=== PATIENT | female | born 1940 | race Caucasian/White ===

== ENCOUNTER → 2018-06-21 | Outpatient (CLI) | payer OTHER, MEDICARE | LOC: CIMAGING 11:12 | PROVIDERS: ATTEND Family Medicine | DX: R91.1 Solitary pulmonary nodule (principal); J98.4 Other disorders of lung; K87 Disorders of gallbladder, biliary tract and pancreas in diseases classified elsewhere | CPT/HCPCS: 71250-PO ==

== ENCOUNTER → 2018-06-28 | Outpatient (CLI) | payer OTHER, MEDICARE | LOC: CIMAGING 07:57 | PROVIDERS: ATTEND Family Medicine | DX: K82.8 Other specified diseases of gallbladder (principal) | CPT/HCPCS: 76705-PO ==

== ENCOUNTER 2018-08-23 07:42 | Day surgery (SDC) | payer OTHER, MEDICARE ==
--- NOTE | 2018-08-21 10:25 | GHP ---
DATE OF ADMISSION: 08/23/2018 DATE OF SURGERY: 08/23/2018 CHIEF COMPLAINT: Abnormal gallbladder ultrasound. HISTORY OF PRESENT ILLNESS: 78-year-old woman originally evaluated on July 11, 2018. She had an ultrasound of her abdomen on 06/28/2018, which showed a nonmobile echogenic mass in her gallbladder w ith no obvious vascularity. The gallbladder is not completely distended and has external mural nodul arity without obvious invasion of the adjacent pericholecystic fat. There is no intra or extrahepati c biliary dilatation. No evidence of hepatic metastases. The pancreas looks normal. She has been f ollowed for this for a gallbladder abnormality for about 6 years. 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 She is asymptomatic. She does not have any discomfort after eatin g fatty foods. Does not have any itching of her skin. She denies any change in her health since her evaluation in the office. PAST MEDICAL HISTORY: Diverticulosis, hyperglycemia, hyperuricemia, lung nodule, renal cyst. PAST SURGICAL HISTORY: Eye surgery, tonsillectomy. ALLERGIES: Penicillin. FAMILY MEDICAL HISTORY: Cardiac arrest, CVA, hypertension, kidney disease. SOCIAL HISTORY: She reports occasional alcohol use. No recreational drug use. She is a current smo ker. She has 1 child. REVIEW OF SYSTEMS: 10-point review of systems negative, aside from HPI. PHYSICAL EXAM: GENERAL: Well-developed, well-nourished woman in no acute distress. HEENT: Normoce phalic, atraumatic. No hearing deficit. Pupils equal, round. No scleral icterus. Mucous membrane s moist. NECK: Trachea midline. RESPIRATORY: Clear to auscultation bilaterally. No increased work of breathing. CARDIOVASCULAR: Regular rate and rhythm. No peripheral edema. ABDOMEN: Soft, nond istended, nontender. No palpable masses. PSYCH: Mood and affect normal. NEURO: Grossly intact. IMPRESSION/PLAN: 78-year-old woman with an abnormal gallbladder ultrasound and cannot rule out carci noma. We discussed laparoscopic cholecystectomy to obtain definitive diagnosis. We discussed risks of surgery, including, but not limited to heart attack, stroke, blood clots, or . We discussed risk of infection, bleeding, damage to surrounding structures, including common bile duct, need for a dditional procedures. She understands risks and would like to proceed. Patient was additionally see n by Dr. Nova Robbins who agrees with the above impression and plan. Anticipate this to be an outpati ent procedure. She will receive antibiotics on-call to the operating room. /[id number]/MODL
[2018-08-23] MEDS ORDERED: LR 1,000 ML IV ONE (08:05)
[2018-08-23] MEDS ORDERED: ceFAZolin 2 GM/DEXTROSE 100 ML IV ONE (08:05)
--- NOTE | 2018-08-23 09:17 | PDANEPAE ---
ANE History of Present Illness gallbladder mass ANE Past Medical History - Cardiovascular History Hx Hypertension: No Hx Arrhythmias: No Hx Chest Pain: No Hx Coronary Artery / Peripheral Vascular Disease: No Hx CHF / Valvular Disease: No Hx Palpitations: No - Pulmonary History Hx COPD: No Hx Asthma/Reactive Airway Disease: No Hx Recent Upper Respiratory Infection: No Hx Oxygen in Use at Home: No Hx Sleep Apnea: No Sleep Apnea Screening Result - Last Documented: Negative Pulmonary History Comment: 1 pack every 2-3 days, smoke over 50 years - Neurologic History Hx Cerebrovascular Accident: No Hx Seizures: No Hx Dementia: No - Endocrine History Hx Diabetes: No Hypothyroid: No Hyperthyroid: No Obesity: no - Renal History Hx Renal Disorders: No - Liver History Hx Hepatic Disorders: No - Neurological & Psychiatric Hx Hx Neurological and Psychiatric Disorders: No - Cancer History Hx Cancer: No - Congenital Disorder History Hx Congenital Disorders: No - GI History GERD: no Hx Gastrointestinal Disorders: Yes Gastrointestinal History Comment: diverticulitis, 2008 never reoccured - Other Health History Other Health History: gout to toe bout 5-6 years ago on allopurinol, high uric acid - Chronic Pain History Chronic Pain: No - Surgical History Prior Surgeries: colonoscopy. tonsilectomy ANE Review of Systems Review of systems is: negative Review of Systems: - Exercise capacity Exercise capacity: >=4 METS METS (RN): 4 METS ANE Patient History - Allergies Allergies/Adverse Reactions: amoxicillin Allergy (Intermediate, Verified 08/23/18 08:19) Itching - Home Medications Home medications: home medication list seen and reviewed Home Medications: Allopurinol 1 tab PO DAILY 08/23/18 [Last Taken 08/22/18] Herbals/Supplements -Info Only 08/23/18 [Last Taken 08/22/18] - NPO status NPO Status: no food or drink >8 hours NPO Since - Liquids (Date): 08/22/18 NPO Since - Liquids (Time): 23:00 NPO Since - Solids (Date): 08/22/18 NPO Since - Solids (Time): 23:00 - Anes Hx Anes Hx: slow to awaken from anesthesia - Smoking Hx Smoking Status: Current every day smoker ANE Labs/Vital Signs - Vital Signs Vital Signs: reviewed preoperatively; see RN documention for details Blood Pressure: 129/74 Heart Rate: 65 Respiratory Rate: 22 O2 Sat (%): 95 Height: 152.4 cm Weight: 63.503 kg ANE Physical Exam - Airway Neck exam: FROM Mallampati Score: Class 2 Mouth exam: poor dentition, dentures - Pulmonary Pulmonary: no respiratory distress - Cardiovascular Cardiovascular: regular rate and rhythym - ASA Status ASA Status: II ANE Anesthesia Plan Anesthesia Plan: general endotracheal anesthesia
[2018-08-23] MEDS ORDERED: fentaNYL 100 MCG/2 ML INJ ONE (09:18)
[2018-08-23] MEDS ORDERED: PROPOFOL 200 MG/20 ML VIAL ONE (09:18)
[2018-08-23] MEDS ORDERED: ROCURONIUM 50 MG/5 ML VIAL ONE (09:19)
[2018-08-23] MEDS ORDERED: ONDANSETRON 4 MG/2 ML VIAL ONE (09:20)
[2018-08-23] MEDS ORDERED: DEXAMETHASONE 4 MG/ML VIAL ONE ×2 (09:21)
[2018-08-23] MEDS ORDERED: LIDOCAINE 2% 5 ML SDV ONE (09:22)
[2018-08-23] MEDS ORDERED: SUGAMMADEX SODIUM 200 MG/2 ML VIAL IVP ONE (09:27)
--- NOTE | 2018-08-23 09:42 | PDHPUP ---
History & Physical Update H&P update statement: This history and physical update is based on an assessment of the patient which was completed after admission or registration (within 24 hours), but prior to the surgery/procedure. H&P update: H&P reviewed & patient examined, no change in patient's condition since H&P completed
[2018-08-23] MEDS ORDERED: BUPIVACAINE 0.5% 30 ML SDV ONE (10:05)
[2018-08-23] MEDS ORDERED: fentaNYL 100 MCG/2 ML INJ IVP PRN (10:45)
[2018-08-23] MEDS ORDERED: oxyCODONE IR 5 MG TAB PO PRN (10:45)
[2018-08-23] MEDS ORDERED: NALOXONE HCL 0.4 MG/ML INJ IVP PRN (10:45)
[2018-08-23] MEDS ORDERED: ACETAMINOPHEN 500 MG TAB PO PRN (10:45)
[2018-08-23] MEDS ORDERED: ALBUTEROL 3 ML DEYVIAL IH PRN (10:45)
[2018-08-23] MEDS ORDERED: MEPERIDINE 25 MG/0.5 ML AMP IVP PRN (10:45)
[2018-08-23] MEDS ORDERED: HYDROmorphONE/DILAUDID 2 MG/ML INJ IVP PRN (10:45)
[2018-08-23] MEDS ORDERED: LABETALOL HCL 20 MG/4 ML INJ IVP PRN (10:45)
[2018-08-23] MEDS ORDERED: PROMETHAZINE HCL 25 MG/ML INJ IVP PRN (10:45)
[2018-08-23] MEDS ORDERED: METOCLOPRAMIDE 10 MG/2 ML VIAL IVP PRN (10:45)
[2018-08-23] MEDS ORDERED: GLYCOPYRROLATE 0.2 MG/1 ML VIAL ONE ×2 (10:51)
[2018-08-23] MEDS ORDERED: NEOSTIGMINE METHYLSULFATE 5 MG/5 ML SYR ONE (10:51)
--- NOTE | 2018-08-23 11:00 | POSTOPPROG ---
Post Op Note Date of Operation: 08/23/18 Surgeon: Nova Robbins Anesthesiologist: felipe Anesthesia: GET(General Endotracheal) Pre-op Diagnosis: gallbladder mass Post-op Diagnosis: same Indication: 78 yo with mass in gb Procedure: lap nithya Findings: no unusual Inf/Abcess present in the surg proc area at time of surgery?: No EBL: Minimal Specimen(s): gallbladder
--- NOTE | 2018-08-23 11:21 | GOP ---
DATE OF OPERATION: 08/23/2018 SURGEON: Nova Robbins MD ANESTHESIA: General. ANESTHESIOLOGIST: Theron Underwood MD PREOPERATIVE DIAGNOSIS: Gallbladder mass. POSTOPERATIVE DIAGNOSIS: Gallbladder mass. PROCEDURE PERFORMED: Laparoscopic cholecystectomy. FINDINGS: No unusual findings. SPECIMENS: Gallbladder. ESTIMATED BLOOD LOSS: 10 cc. INDICATIONS: Patient is a 78-year-old who was found to have a mass within her gallbladder that could not be better delineated with imaging. DESCRIPTION OF PROCEDURE: Patient was brought into the operating room, placed supine on the table, a nd general anesthesia was administered. Her abdomen was prepped and draped in the usual sterile fash ion. Infiltrated all sites with 0.5% Marcaine prior to making incision. I elevated her umbilicus. I made a small incision. I inserted the Veress needle. It passed the dhillon ging drop test. Her abdomen insufflated easily to a pressure of 15 mmHg. I placed a 5 mm trocar wit h a camera at this site. There were no injuries from Veress needle placement. Under direct vision, I placed a 10 mm subxiphoid trocar and two 5 mm trocars along the right costal margin. I elevated her gallbladder cephalad and laterally to expose the triangle of Calot and skeletonized t he cystic artery and cystic duct. These were each skeletonized and they were the only 2 structures d irectly entering the gallbladder. Each were singly clipped towards the gallbladder, doubly clipped d istally, and transected. The clips just went around the cystic duct and so I also placed an 0 PDS En doloop to secure this. I removed the gallbladder from the gallbladder fossa with the electrocautery. It was placed in an EndoCatch bag and retrieved via the 10 mm trocar. Hemostasis achieved on the l iver bed. Ports were removed under direct vision. Abdomen allowed to desufflate. The fascia at the 10 mm troc ar site was closed with 0 Vicryl, skin closed with 4-0 Monocryl. Dermabond applied. She was awakene d in the operating room, extubated, transferred to PACU in stable condition. /[id number]/MODL
--- NOTE | 2018-08-23 12:25 | POSTANESTH ---
Post Anesthetic Evaluation Cardiovascular Status: Normal, Stable Respiratory Status: Normal, Stable Level of Consciousness/Mental Status: Can Participate in Eval Pain Control: Adequate, Prn Tx Ordered Nausea/Vomiting Control: Adequate, Prn Tx Ordered Complications Possibly Related to Anesthesia: None Noted
[2018-08-23 12:37] VITALS: BP 116/75
== END 2018-08-23 12:37 | disposition home or self-care (01) ==
LOC: FSGY 07:42
PROVIDERS: ATTEND Surgery
PROC: 0FT44ZZ Resection of Gallbladder, Percutaneous Endoscopic Approach (ICD-10-PCS; principal; 2018-08-23 09:30)
DX: K80.20 Calculus of gallbladder without cholecystitis without obstruction (principal); M10.079 Idiopathic gout, unspecified ankle and foot; R91.1 Solitary pulmonary nodule; N28.1 Cyst of kidney, acquired; F17.210 Nicotine dependence, cigarettes, uncomplicated
CPT/HCPCS: J0690; J1100; J2405; J2704; J2710; J3010

== ENCOUNTER → 2018-09-17 | Outpatient (CLI) | payer OTHER, MEDICARE | LOC: FIMAGING 09:58 | PROVIDERS: ATTEND Family Medicine | DX: Z13.820 Encounter for screening for osteoporosis (principal); Z78.0 Asymptomatic menopausal state ==